=== PATIENT | female | born 1970 | race Two or more races ===

== ENCOUNTER 2023-04-07 17:20 | Emergency (ER) | payer SELFPAY ==
[2023-04-07] MEDS ORDERED: Sodium Chloride 0.9% 10 ML Syringe FLUSH PRN (17:32)
[2023-04-07] MEDS ORDERED: Metoclopramide 10 MG/2 ML SDV IVPUSH ONE (17:32)
[2023-04-07] MEDS ORDERED: diphenhydrAMINE 50 MG/ML SDV IVPUSH ONE (17:38)
[2023-04-07] MEDS ORDERED: Sodium Chloride 0.9% 1,000 ML IV SCH ×2 (17:45→21:00)
[2023-04-07 18:45] LABS: BASOPHILS ABSOLUTE AUTO 0.02 K/mm3 (0.01-0.08); BASOPHILS PERCENT AUTO 0.2 % (0.1-1.2); EOSINOPHILS PERCENT AUTO 0 (0.7-5.8); HEMOGLOBIN 11.7 gm/dl (11.2-15.7); IMMATURE GRAN ABSOLUTE AUTO 0.02 K/mm3 (0.00-0.10); IMMATURE GRAN PERCENT AUTO 0.2 % (<=1.0); LYMPHOCYTES ABSOLUTE AUTO 1.28 K/mm3 (1.18-3.74); LYMPHOCYTES PERCENT AUTO 14.2 % (19.3-51.7); MEAN CORPUSCULAR HEMOGLOBIN 27.7 pg (25.6-32.2); MEAN CORPUSCULAR HGB CONC 32.5 g/dl (32.2-35.5); MEAN CORPUSCULAR VOLUME 85.1 fl (79.4-94.8); MEAN PLATELET VOLUME 10.3 fl (9.4-12.3); MONOCYTES PERCENT AUTO 5.5 % (4.7-12.5); NEUTROPHILS ABSOLUTE AUTO 7.19 K/mm3 (1.56-6.13); NEUTROPHILS PERCENT AUTO 79.9 % (34.0-71.1); PLATELET COUNT,PLT 346 K/mm3 (182-369); RED BLOOD CELL COUNT 4.23 M/mm3 (3.98-5.22); WHITE BLOOD CELL COUNT,WBC 9.01 K/mm3 (3.98-10.04)
[2023-04-07 19:09] LABS: A/G RATIO 0.7 (1-2); ALANINE AMINOTRANSFERASE,ALT 26 U/L (14-59); ALBUMIN 3.1 g/dl (3.4-5.0); ALKALINE PHOSPHATASE 115 U/L (46-116); ANION GAP 12.9 (5-15); ASPARTATE AMNIOTRANSFERASE,AST 30 U/L (15-37); BILIRUBIN TOTAL 0.3 mg/dL (0.2-1.0); BLOOD UREA NITROGEN,BUN 7 mg/dL (7-18); C-REACTIVE PROTEIN <0.2 mg/dL (<1.0); CARBON DIOXIDE,CO2 29 mEq/L (21-32); CHLORIDE,CL 105 mEq/L (98-107); CREATININE 0.7 mg/dL (0.55-1.02); ESTIMATED GFR 103 mL/min (>60); GLUCOSE RANDOM 101 mg/dL (70-99); MAGNESIUM 1.4 mg/dL (1.8-2.4); POTASSIUM,K 2.9 mEq/L (3.5-5.1); PROTEIN TOTAL,TP 7.3 g/dl (6.4-8.2); SODIUM,NA 144 mEq/L (136-145)
[2023-04-07] MEDS ORDERED: cloNIDine 0.1 MG Tab PO ONE (19:25)
[2023-04-07] MEDS ORDERED: Ketorolac 30 MG/ML SDV IVPUSH ONE (19:26)
[2023-04-07] MEDS: Potassium Chloride 10 MEQ in Premix Bag 1 BAG IV SCH ×4 (19:38→23:30)
[2023-04-07] MEDS ORDERED: OLANZapine 10 MG Vial ONE (19:39)
[2023-04-07] MEDS ORDERED: Ondansetron 4 MG/2 ML SDV IVPUSH ONE (19:52)
[2023-04-07] MEDS ORDERED: OLANZapine 10 MG Vial IM ONE (19:58)
[2023-04-07] MEDS ORDERED: Magnesium Sulfate/Water 2 GM in Premix Bag 1 BAG IV ONE (20:07)
[2023-04-07] MEDS ORDERED: Buprenorphine/Naloxone 8-2 MG Tab.SL SL ONE (21:04)
[2023-04-07] MEDS ORDERED: Methadone 10 MG Tab PO STA (21:34)
[2023-04-07] MEDS ORDERED: HYDROmorphone 1 MG/ML Syringe IVPUSH ONE (21:35)
== END 2023-04-08 02:34 | disposition home or self-care (01) ==
LOC: JD.ED 17:20
DX: F11.23 Opioid dependence with withdrawal (principal)
CPT/HCPCS: 36415; 80053; 80307; 83735; 85025; 86140; 96361; 96365; 96366; 96367; 96368; 96372; 96375; 96376; 99284; A9270; J1170; J1200; J1885; J2405; J2765; J3475; J3480; J7030